=== PATIENT | male | born 1950 | race African-American/Black ===

== ENCOUNTER 2024-12-01 09:08 | Outpatient (AMB) | payer MEDICARE, SELFPAY ==
--- NOTE | 2024-12-01 09:12 | A.OFFPC_ITS ---
Vital Signs 12/01/24 09:18 Height 5 ft 7 in Weight 147 lb 2 oz BMI 23.0 BP 114/70 Blood Pressure Location Rt brachial Position Sitting Respiration 15 Pulse 77 Pulse Source Pulse Oximeter Temp 97.7 F Temp Source Temporal Artery Scan Pulse Oximetry (%) 94 Oxygen Delivery Method Room Air Intake Visit Reasons: [employer] CARE Intake Note: Jah presents in the office today to establish care. Allergies No Known Allergies Allergy (Verified 12/01/24 09:15) Medication List - Last Reconciled 12/01/24 by Dewey Carlson MD No Known Home Meds Tobacco use date assessed: 12/01/24 Fall risk assessment: No Falls in past year Last assessed Fall Risk: 12/01/24 Dental Screening Dental Screen Date: 12/01/24 Did you have a dental visit in the last 12 months?: Yes Did you have a dental problem in the last 6 months where you did not have access to dental care?: No Was dental information given to patient?: Patient declined HPI [employer] HPI Details New Patient? ?? Prior PCP:? Prior in [facility] Last office visit/CPE:? 10 mos Acute issue(s):? 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 PMHx:? Esophageal CA - in Remission since 2015 [facility] follows, DVT, BPH & Urinary Retention, Hx Obstructive Uropathy Dr. Pringle. SurgHx:? Partial esophagectomy & Gastrectomy . Internal hernia repair. SocHx: Quit cigs 2006, EtOH HPI Comments History of Present Illness Details Documentation assistance for Dewey Carlson MD, was provided by Alonzo Ramirez,? Marine Pipefitter Helper on 12/01/2024 at 9:27 AM EST. I, Dr. Carlson, have read, observed, and verified documentation. ?? PFSH Social History (Updated 12/01/24 @ 09:18 by Chelsea Leblanc CMA) Housing: House Alcohol intake: former Patient Tobacco Use Status: Former Tobacco user Tobacco use type: Cigarette Cigarette Packs Per Day: 1 Cigarettes Per Day: 17 Years Smoked: 27 e-Cigarette/Vaping Use: Never Used Second Hand Smoke Exposure: No service: No Current occupational status: retired Current occupational exposures/hazards: No Cognitive needs: No Hearing needs: No Vision needs: Yes Questionnaire PHQ-9 Over the last 2 weeks, how often have you been bothered by any of the following problems? 1. Little interest or pleasure in doing things: not at all 2. Feeling down, depressed, or hopeless: not at all 3. Trouble falling or staying asleep, or sleeping too much: not at all 4. Feeling tired or having little energy: not at all 5. Poor appetite or overeating: not at all 6. Feeling bad about yourself - or that you are a failure or have let yourself or your family down: not at all 7. Trouble concentrating on things, such as reading the newspaper or watching television: not at all 8. Moving or speaking so slowly that other people could have noticed. Or the opposite - being so fidgety or restless that you have been moving around a lot more than usual: not at all 9. Thoughts that you would be better off or of hurting yourself in some way: not at all Total score: 0 Depression Screening Interpretation: Negative Depression Screening Done: Yes 64905 - PHQ-9 Billing: Yes Source: Developed by Drs. Sergio Mcelroy, Claire Warren, Forrest Olivares and colleagues, with an educational roselia from [employer]. Thrive Questionnaire Date Thrive assessed: 12/01/24 I am a: Patient What is your living situation today?: I have a steady place to live Within the past 12 months, did the food you bought not last and you didn't have the money to get more?: Never true Within the past 12 months, did you worry whether your food would run out before you got money to buy more?: Never true Do you have trouble paying for medicines?: I choose not to answer this question Do you have trouble getting transportation to medical appointments?: No Do you have trouble paying your heating and electricity bill?: No Do you have trouble taking care of your child, family member or friend?: No Do you have trouble with day-to-day activities such as bathing, preparing meals, shopping, managing finances, etc.?: No Are you currently unemployed and looking for a job?: I choose not to answer this question Are you interested in more education?: No Please select the resources that you would like help with: None Currently or been in a relationship where the following occur: I choose not to answer THRIVE Score: 0 AUDIT C Alcohol Use Questionnaire (AUDIT-C) 1. How often do you have a drink containing alcohol?: Never 3. How often do you have six or more drinks on one occasion?: Never Total Score: 0 EMELINA-7 AMB Questionnaire EMELINA-7 Date EMELINA - 7 assessed: 12/01/24 Feeling nervous, anxious, or on edge: 0 = Not at all Not being able to stop or control worryin = Not at all Worrying too much about different things: 0 = Not at all Trouble relaxin = Not at all Being so restless that it is hard to sit still: 0 = Not at all Becoming easily annoyed or irritable: 0 = Not at all Feeling afraid as if something awful might happen: 0 = Not at all Total EMELINA-7 score (0-4 normal; 5-9 mild; 10-14 moderate; 15-21 severe): 0 Source: Developed by Drs. Sergio Mcelroy, Claire Warren, Forrest Olivares and colleagues, with an educational roselia from [employer]. EMELINA-7 Assessment Billing EMELINA-7 Assessment Tool: EMELINA-7 Assessment 48616 Review of Systems Const Denies chills, Denies fatigue, Denies fever(s), Denies headache(s) and Denies weakness ENT Denies dizziness and Denies headache(s) Card Denies dyspnea Resp Denies cough, Denies dyspnea, Denies wheezing and Denies other (shortness of breath) Musc Denies numbness and Denies tingling Neuro Denies dizziness, Denies headache(s), Denies numbness, Denies tingling and Denies weakness Psych Denies anxiety and Denies depression Endo Denies fatigue Aller/Immun Denies wheezing Physical exam (Primary Care) Vital Signs: Last Vital Signs Temp 97.7 F 12/01/24 09:18 Pulse 77 12/01/24 09:18 Resp 15 12/01/24 09:18 BP 114/70 12/01/24 09:18 Pulse Ox 94 12/01/24 09:18 Oxygen Delivery Method Room Air 12/01/24 09:18 BMI result Body Mass Index 23.0 Tobacco/Smoking Status: Tobacco use Status Tobacco use date assessed 12/01/24 12/01/24 09:22 Patient Tobacco Use Status Former Tobacco user 12/01/24 09:22 Tobacco use type Cigarette 12/01/24 09:22 e-Cigarette/Vaping Use Never Used 12/01/24 09:22 PHQ-9: PHQ-9 Score PHQ-9: Total score 0 12/01/24 09:22 Depression Screening Interpretation: Negative Thrive Assessment: Date of Thrive Assessment Date Thrive assessed 12/01/24 12/01/24 09:14 Currently or been in a relationship where the following occur: I choose not to answer Const General: well developed; No acute distress Nutritional Appearance: well nourished Orientation/consciousness: patient oriented x3 HENMT Head: Yes normocephalic and Yes atraumatic Eyes General: appearance normal, both eyes and all related structures Pupils: Equal, round and reactive pupils present EOM: EOMs intact bilaterally Resp Effort & Inspection: normal respiratory effort Auscultation: clear to auscultation bilaterally Cardio Rate: regular rate Rhythm: regular rhythm Heart sounds: S1 normal heart sound present, S2 normal heart sound present, no gallops, no murmurs and no rubs Neuro General: patient oriented x3 and gait normal Cranial nerves: Yes Equal, round and reactive pupils present Psych Affect: normal affect Coding Level of Care Code New Pt Level 3 (06776) Diagnoses History of esophageal cancer Z85.01 History of DVT (deep vein thrombosis) Z86.718 Right wrist pain M25.531 BPH (benign prostatic hyperplasia) N40.0 Arthritis M19.90 Laboratory exam ordered as part of routine general medical examination Z00.00 Obstructive uropathy N13.9 Additional Codes EMELINA-7 Assessment Billing - EMELINA-7 Assessment Tool: EMELINA-7 Assessment 53465 ([id number]) PHQ-9 - 61330 - PHQ-9 Billing: Yes ([id number]) Assessment & Plan Assessment & Plan (1) History of esophageal cancer: Code(s): Z85.01 - Personal history of malignant neoplasm of esophagus Category: Medical (2) History of DVT (deep vein thrombosis): Code(s): Z86.718 - Personal history of other venous thrombosis and embolism Category: Medical (3) Right wrist pain: Code(s): M25.531 - Pain in right wrist Category: Medical (4) BPH (benign prostatic hyperplasia): Code(s): N40.0 - Benign prostatic hyperplasia without lower urinary tract symptoms Category: Medical (5) Arthritis: Code(s): M19.90 - Unspecified osteoarthritis, unspecified site Category: Medical (6) Laboratory exam ordered as part of routine general medical examination: Code(s): Z00.00 - Encounter for general adult medical examination without abnormal findings Category: Medical (7) Obstructive uropathy: Code(s): N13.9 - Obstructive and reflux uropathy, unspecified Category: Medical Plan 74-year-old male presents as new patient. History of BPH and obstructive uropathy x2. Currently not on any medications but does have follow-up with Dr. Pringle in the next few weeks. Most recent episode was in August and he had Francisco catheter in tamsulosin or week. Fully successfully removed and is no longer taking the medications. Follow-up with Urology, Dr. Pringle History of esophageal cancer-in remission, since 2016. S/p partial esophagectomy and partial gastrectomy. He is still followed by [facility] surgery. History of DVT around the time esophageal cancer. Was blood thinners these discontinued as DVT resolved. Right wrist arthritis, mild Recommended conservative care He will let me know if this worsens and we get an x-ray consider referral SaO2 is mildly low. History of smoking-quit cigarettes in 2005. Lungs sound clear. No diminished or distant breath sounds. No shortness of breath. Orders: Orders Comprehensive [place]. Panel Fast Today Z00.00 - Encounter for general adult medical examination without abnormal findings Lipid Panel Today Z00.00 - Encounter for general adult medical examination without abnormal findings Microalbumin, Random (w Creat) Today I10 - Essential (primary) hypertension UA CC w/rflx Micro + Cult Today Z00.00 - Encounter for general adult medical examination without abnormal findings Vitamin B12 and Folate Today E53.8 - Deficiency of other specified B group vitamins Complete Blood Count Auto Diff Today Z00.00 - Encounter for general adult medical examination without abnormal findings Prostate Specific Antigen Scr Today Z12.5 - Encounter for screening for malignant neoplasm of prostate TSH reflex Free T4 Today Z00.00 - Encounter for general adult medical examination without abnormal findings Vitamin D 25-OH Total Today E55.9 - Vitamin D deficiency, unspecified
[2024-12-01 09:18] VITALS: BP 114/70; PULSE 77; RESP 15; TEMP 36.5; O2SAT 94; BMI 23.0
--- OUTSIDE RECORDS SUMMARY | 2024-12-01 09:36 | XMS_ITS | Clinical Summary ---
Author Organization [facility] [address] [facility] Address [address] [place] [address] Phone Care Team Providers Care Cadd Operator Name Role Phone Yady Corral ELADIO Primary Care Provider [phone] Allergies No known active allergies Social History Tobacco Use Types Packs/Day Years Used Date Smoking Tobacco: Never Assessed Sex and Gender Information Value Date Recorded Sex Assigned at Not on file Legal Sex Male 11:07 AM EST Gender Identity Not on file Sexual Orientation Not on file Plan of Treatment Health Maintenance Due Date Last Done Comments Colorectal Cancer Screening: Colonoscopy 1950 Hepatitis A Vaccines (1 of 2 - Risk 2-dose series) 10/24/1970 Zoster Vaccines (1 of 2) 10/24/2001 RSV Immunization Adult Patients (1 - Risk 60-74 years 1-dose series) 2011 DTaP,Tdap,and Td Vaccines (2 - Td or Tdap) 05/24/2021 05/25/2011 Abdominal Aortic Aneurysm (AAA) Screen 01/06/2024 Cholesterol Screening (Lipid Panel) 01/06/2024 Falls Risk Assessment 01/06/2024 Hepatitis C Screening 01/06/2024 Medicare Annual Wellness Visit 01/06/2024 Social Influencers of Health Screening 01/06/2024 Hypertension/CHF/CAD Annual BMP Blood Test 01/26/2024 Depression Screening 03/01/2024 COVID-19 Vaccine ( season) 2024 11/09/2023, 12/25/2022, 02/12/2022, Additional history exists Influenza Vaccine (#1) 2024 , 12/04/2020, 01/12/2020, Additional history exists Hepatitis B Vaccines Completed 11/30/2011, 06/23/2011, 05/25/2011 Pneumococcal Vaccine: 50+ Years Completed 03/26/2017, 05/14/2014 HIB Vaccines Aged Out No longer eligi ble based on patient's age to complete this topic HPV Vaccines Aged Out No longer eligi ble based on patient's age to complete this topic IPV Vaccines Aged Out No longer eligi ble based on patient's age to complete this topic MMR Vaccines Aged Out No longer eligi ble based on patient's age to complete this topic Meningococcal ACWY Vaccine Aged Out N o longer eligible based on patient's age to complete this topic Meningococcal B Vaccine Aged Out No l onger eligible based on patient's age to complete this topic RSV Immunization Patients Under 20 months Aged Out No longer eligible based on patient's age to complete this topic Varicella Vaccines Aged Out No longer eligible based on patient's age to complete this topic Insurance [employer] MEDICARE Care Teams Cadd Operator Relationship Specialty Start Date End Date Yady Corral FNP [address] [place] [id number] PCP - General 01/15/24
== END 2024-12-01 09:45 | disposition home or self-care (01) ==
LOC: HO.HMCFM 09:09
PROVIDERS: PCP Family Medicine; Visit Provider Family Medicine
DX: Z85.01 Personal history of malignant neoplasm of esophagus (principal); Z86.718 Personal history of other venous thrombosis and embolism; M25.531 Pain in right wrist; N40.0 Benign prostatic hyperplasia without lower urinary tract symptoms; M19.90 Unspecified osteoarthritis, unspecified site; Z00.00 Encounter for general adult medical examination without abnormal findings; N13.9 Obstructive and reflux uropathy, unspecified

== ENCOUNTER → 2024-12-01 09:08 | Outpatient (BNVA) | payer MEDICARE, SELFPAY | PROVIDERS: PCP Family Medicine; Visit Provider Family Medicine | DX: Z00.00 Encounter for general adult medical examination without abnormal findings (principal); M25.531 Pain in right wrist; N13.9 Obstructive and reflux uropathy, unspecified; M19.031 Primary osteoarthritis, right wrist; E53.8 Deficiency of other specified B group vitamins; E55.9 Vitamin D deficiency, unspecified; N40.1 Benign prostatic hyperplasia with lower urinary tract symptoms; N13.8 Other obstructive and reflux uropathy; Z87.891 Personal history of nicotine dependence; Z85.01 Personal history of malignant neoplasm of esophagus; Z86.718 Personal history of other venous thrombosis and embolism | CPT/HCPCS: 96127; 99202 ==

== ENCOUNTER 2024-12-08 07:57 | Outpatient (REF) | payer MEDICARE, SELFPAY ==
[2024-12-08 11:00] LABS: MANUAL DIFF FLAG NO
[2024-12-08 11:13] LABS: Hematocrit 42.4 % (42.0-52.0); Hemoglobin 13.8 g/dl (14.0-18.0); Imm Gran Abs Auto 0.01 X10*3/uL (0.00-0.03); Imm Gran Pct Auto 0.2 % (0.0-0.4); Lymphocytes Absolute Auto 2.4 X10*3/uL (1.2-4.9); Mean Corpuscular HGB Conc 32.5 g/dl (31.0-36.0); Mean Corpuscular Hemoglobin 29.7 pg (27.0-33.0); Mean Corpuscular Volume 91.2 fL (80.0-98.0); NRBC Abs Auto 0.000 X10*3/uL (0.0-0.012); NRBC Pct Auto 0.0 /100WBC (0.0-0.2); Platelet Count 185 X10*3/uL (160-400); Red Blood Count 4.65 X10*6/uL (4.60-5.80); White Blood Count 6.5 X10*3/uL (4.8-10.8)
[2024-12-08 11:19] LABS: Appearance Urine Turbid; Glucose Urine UA Negative (Negative); PH 5.5 (5.0-9.0); Specific Gravity - Urine 1.015 (1.005-1.025); UMIC TRIGGER UACC YES
[2024-12-08 11:25] LABS: UACC Culture Trigger YES
[2024-12-08 11:45] LABS: Alanine Aminotransferase 20 U/L (0-40); Albumin Level 4.2 g/dL (3.5-5.0); Alkaline Phosphatase 67 U/L (39-117); Anion Gap 10 (12-20); Aspartate Amino Transferase 32 U/L (5-37); Blood Urea Nitrogen 10 mg/dL (9-16); Calcium 9.4 mg/dL (8.4-10.2); Carbon Dioxide 28 mmol/L (22-29); Chloride 110 mmol/L (96-108); Cholesterol 143 mg/dL (<200); Estimated Glomerular Filt Rate > 60; HDL Cholesterol 48 mg/dL (>40); Potassium 4.4 mmol/L (3.3-5.1); Sodium 144 mmol/L (135-145); Total Protein 7.3 g/dL (6.5-8.0); Triglycerides 47 mg/dL (<150)
[2024-12-08 11:53] LABS: Microalbum/Creatinine Ratio Ur 57.2 ug/mg cr (<30)
[2024-12-08 12:04] LABS: Folate 13.7 ng/mL (> or = 4.0); Vitamin B12 890 pg/mL (200-900)
== END 2024-12-08 07:58 | disposition home or self-care (01) ==
LOC: HO.WFDLDS 07:57
PROVIDERS: Visit Provider Family Medicine
DX: Z00.00 Encounter for general adult medical examination without abnormal findings (principal); Z12.5 Encounter for screening for malignant neoplasm of prostate; I10 Essential (primary) hypertension; E53.8 Deficiency of other specified B group vitamins; E55.9 Vitamin D deficiency, unspecified
CPT/HCPCS: 36415; 80053; 80061; 81001; 82043; 82306; 82570; 82607; 82746; 84153; 84443; 85025; 87086; 87088; 87186